=== PATIENT | male | born 1995 | race Hispanic/Latino ===

== ENCOUNTER 2019-06-20 19:43 | Emergency (ER) | payer OTHER ==
[~2019-06-20] VITALS: Ht 160 cm; Wt 77.1 kg
[2019-06-20] MEDS ORDERED: IBUPROFEN 600 MG TAB PO STA (19:54)
[2019-06-20] MEDS ORDERED: IBUPROFEN 200 MG TAB ONE (20:06)
[2019-06-20 20:14] LABS: STREPTOCOCCUS GRP A ANTIGEN POSITIVE (NEGATIVE)
[2019-06-20] MEDS ORDERED: ACETAMINOPHEN 325 MG TAB PO ONE (20:15)
[2019-06-20] MEDS ORDERED: IBUPROFEN 400 MG TAB PO ONE (20:15)
[2019-06-20] MEDS ORDERED: IBUPROFEN 600 MG TAB PO ONE (20:15)
[2019-06-20 20:23] LABS: INFLUENZAE A&B ANTIGEN (RAPID) NEGATIVE (NEGATIVE)
[2019-06-20] MEDS ORDERED: PENICILLIN G BENZATHINE LA 1.2 MU TBX IM STA (20:29)
[2019-06-20] MEDS ORDERED: DEXAMETHASONE SOD PHOS 10 MG/1 ML VIAL IV ONE (20:30)
--- NOTE | 2019-06-20 20:52 | Diagnostic Imaging Report ---
EXAMINATION: CHEST 2 VIEWS INDICATION: Cough ^COUGH, FLU LIKE ^[id number] ^2024 COMPARISON: None FINDINGS: PA and lateral views TUBES and LINES: None. LUNGS: Lungs are well inflated. There is no evidence of pneumonia or pulmonary edema. PLEURA: No pleural effusion or pneumothorax. HEART AND MEDIASTINUM: The cardiomediastinal silhouette is unremarkable.. BONES AND SOFT TISSUES: No focal osseous lesions. Soft tissues are unremarkable. UPPER ABDOMEN: Unremarkable. IMPRESSION: No acute thoracic abnormality. Signed by: Dr. Topher Burroughs MD on 06/20/2019 8:49 PM
[2019-06-20] MEDS ORDERED: DEXAMETHASONE 4 MG TAB PO SCH (21:15)
[2019-06-20] MEDS ORDERED: DEXAMETHASONE SOD PHOS 10 MG/1 ML VIAL IM ONE (21:30)
[2019-06-20 21:58] VITALS: BP 123/74
--- OUTSIDE RECORDS SUMMARY | 2019-06-20 22:13 | XMS REPORT ---
Author [facility] Address Unknown Phone Unavailable Care Team Providers Care Clother In Name Role Phone CELSO NIX Unavailable Unavailable Problems This patient has no known problems. Allergies, Adverse Reactions, Alerts This patient has no known allergies or adverse reactions. Medications This patient has no known medications. Results Test Description Test Time Test Comments Text Results Atomic Results Result Comments CHEST 2 VIEWS 2019-06-20 20:49:00 [place] [address] Patient Name: Santana Flores MR #: [id number] : 1995 Age/Sex: 23/M Req #: [id number] Adm Physician: Ordered by: RIGO WISEMAN NP Report #: [id number] Location: ER Room/Bed: Procedure: [id number] DX/CHEST 2 VIEWS Exam Date: 06/20/19 Exam Time: 2024 REPORT STATUS: Signed EXAMINATION: CHEST 2 VIEWS INDICATION: Cough COUGH, FLU LIKE [id number] COMPARISON: None FINDINGS: PA and lateral views TUBES and LINES: None. LUNGS: Lungs are well inflated. There is no evidence of pneumonia or pulmonary edema. PLEURA: No pleural effusion or pneumothorax. HEART AND MEDIASTINUM: The cardiomediastinal silhouette is unremarkable.. BONES AND SOFT TISSUES: No focal osseous lesions. Soft tissues are unremarkable. UPPER ABDOMEN: Unremarkable. IMPRESSION: No acute thoracic abnormality. Signed by: Dr. Chas Burroughs MD on 06/20/2019 8:49 PM Dictated By: CHAS BURROUGHS MD 48 Transcribed By: JIMMY on 06/20/192048 COPY TO: RIGO WISEMAN NP
== END 2019-06-20 22:10 | disposition home or self-care (01) ==
LOC: ER 19:43 → EDBD 19:43 → ER 22:10
DX: R50.9 Fever, unspecified (principal); R05 Cough; J02.0 Streptococcal pharyngitis
CPT/HCPCS: 71046; 83518; 87400; 99283; J0561; J1100